=== PATIENT | female | born 1940 | race Caucasian/White ===

== ENCOUNTER 2017-02-01 12:04 | Day surgery (SDC) | payer BC ==
--- NOTE | ~2017-02-01 | EGD ---
EGD REPORT [facility] [address] [address] NAME: TRINIDAD MYERS : [birth year] STATUS : REG [facility] PAT#: [id number] AGE: 76 ADM/REG DATE : 02/01/17 MR#: [id number] REPORT SERV DATE: 02/01/17 DICTATED BY: PEPPER MCALLISTER DATE: 02/01/17 REPORT STATUS : Draft [facility]: [facility] DATE: 02/01/17 [facility] Patient Name: Trinidad Myers Date of : 1940 Attending MD: PEPPER MCALLISTER MD Procedure Date No Time: 02/01/2017 Procedure: Colonoscopy Indications: Chronic diarrhea Referring MD: ASHA MAK Medicines: Monitored Anesthesia Care Complications: No immediate complications. Procedure: Pre-Anesthesia Assessment: - ASA Grade Assessment: III - A patient with severe systemic disease. After I obtained informed consent, the scope was passed under direct vision. Throughout the procedure, the patient's blood pressure, pulse, and oxygen saturations were monitored continuously. The CF [id number] was introduced through the anus and advanced to the terminal ileum, with identification of the appendiceal orifice and IC valve. The colonoscopy was performed without difficulty. The patient tolerated the procedure well. The quality of the bowel preparation was good. Findings: The terminal ileum appeared normal. A sessile polyp was found in the ascending colon. The polyp was 5 mm in size. The polyp was removed with a cold biopsy forceps. Resection and retrieval were complete. The ascending colon appeared normal. Biopsies were taken with a cold forceps for evaluation of microscopic colitis. The sigmoid colon appeared normal. Biopsies were taken with a cold forceps for evaluation of microscopic colitis. Multiple diverticula were found in the sigmoid colon. Hemorrhoids were found during retroflexion and were moderate. Impression: - The examined portion of the ileum was normal. - One 5 mm polyp in the ascending colon. Resected and retrieved. - The ascending colon is normal. Biopsied. - The sigmoid colon is normal. Biopsied. - Diverticulosis in the sigmoid colon. - Hemorrhoids. Recommendation: - Patient has a contact number available for EGD REPORT [address] [address] NAME: TRINIDAD MYERS : [birth year] STATUS : REG [facility] PAT#: [id number] AGE: 76 ADM/REG DATE : 02/01/17 MR#: [id number] REPORT SERV DATE: 02/01/17 DICTATED BY: PEPPER MCALLISTER DATE: 02/01/17 REPORT STATUS : Draft TRANSCRIBED BY: [facility] DATE: 02/01/17 emergencies. The signs and symptoms of potential delayed complications were discussed with the patient. Return to normal activities tomorrow. Written discharge instructions were provided to the patient. - Regular diet. - Continue present medications. - Return to GI clinic in 4 weeks. Procedure Code(s): --- Professional --- 23911, Colonoscopy, flexible, proximal to splenic flexure; with biopsy, single or multiple Diagnosis Code(s): --- Professional --- K64.9, Unspecified hemorrhoids K57.30, Diverticulosis of large intestine without perforation or abscess without bleeding D12.2, Benign neoplasm of ascending colon K52.9, Noninfective gastroenteritis and colitis, unspecified CPT copyright 2013 [employer]. All rights reserved. The codes documented in this report are preliminary and upon entry level finance review may be revised to meet current compliance requirements. PEPPER MCALLISTER MD 02/01/2017 3:18 PM This report has been signed electronically. Number of Addenda: 0 Note Initiated On: 02/01/2017 2:27 PM Scope Withdrawal Time 0 hours 7 minutes 45 seconds [id number] [id number]
--- NOTE | ~2017-02-01 | EGD ---
EGD REPORT [facility] [address] [address] NAME: TRINIDAD MYERS : 36 STATUS : REG [facility] [place] PAT#: [id number] AGE: 76 ADM/REG DATE : 02/01/17 MR#: [id number] REPORT SERV DATE: 02/01/17 DICTATED BY: PEPPER MCALLISTER DATE: 02/01/17 REPORT STATUS : Draft [facility] DATE: 02/01/17 End[facility] Center Patient Name: Trinidad Myers Date of : 1940 Attending MD: PEPPER MCALLISTER MD Procedure Date No Time: 02/01/2017 Procedure: Upper GI endoscopy Indications: Diarrhea Referring MD: Jayna Dumont Medicines: Monitored Anesthesia Care Complications: No immediate complications. Procedure: Pre-Anesthesia Assessment: - ASA Grade Assessment: III - A patient with severe systemic disease. After obtaining informed consent, the endoscope was passed under direct vision. Throughout the procedure, the patient's blood pressure, pulse, and oxygen saturations were monitored continuously. The GIF [id number] was introduced through the mouth, and advanced to the second part of duodenum. The upper GI endoscopy was accomplished without difficulty. The patient tolerated the procedure well. Findings: The examined esophagus was normal. A large hiatus hernia was present. The first part of the duodenum was normal. The 2nd part of the duodenum was normal. Biopsies were taken with a cold forceps for histology. A single medium-sized nodule that is soft was found at 2nd part of the duodenum. Impression: - Normal esophagus. - Hiatus hernia. - Normal first part of the duodenum. - Normal 2nd part of the duodenum. Biopsied. - Nodule found in the duodenum. Recommendation: - Await pathology results. Procedure Code(s): --- Professional --- 56286, Esophagogastroduodenoscopy, flexible, transoral; with biopsy, single or multiple Diagnosis Code(s): --- Professional --- EGD REPORT [place] [address] [address] NAME: TRINIDAD MYERS : [birth year] STATUS : REG [facility] [place] PAT#: [id number] AGE: 76 ADM/REG DATE : 02/01/17 MR#: [id number] REPORT SERV DATE: 02/01/17 DICTATED BY: PEPPER MCALLISTER DATE: 02/01/17 REPORT STATUS : Draft TRANSCRIBED BY: [facility] DATE: 02/01/17 K44.9, Diaphragmatic hernia without obstruction or gangrene K31.9, Disease of stomach and duodenum, unspecified R19.7, Diarrhea, unspecified CPT copyright 2013 [employer]. All rights reserved. The codes documented in this report are preliminary and upon molder wax ball review may be revised to meet current compliance requirements. PEPPER MCALLISTER MD 02/01/2017 2:56 PM This report has been signed electronically. Number of Addenda: 0 Note Initiated On: 02/01/2017 2:33 PM Scope Withdrawal Time 0 hours 0 minutes 0 seconds [facility] [address] [id number]
[~2017-02-01 12:04] MED LIST: CARDIZEM LA180 MG PO; IBU-200200 MG PO; LIPITOR20 PO; PRILO PO; PRIN10 PO; SINGULAIR1 PO; SYN125 PO; ZYRTEC ALLGY10 MG PO
== END 2017-02-01 23:59 | disposition home or self-care (01) ==
LOC: DMU 12:04
PROVIDERS: Internal Medicine Gastroenterology
PROC: 0DB98ZX Excision of Duodenum, Via Natural or Artificial Opening Endoscopic, Diagnostic (ICD-10-PCS; 2017-02-01)
PROC: 0DBK8ZZ Excision of Ascending Colon, Via Natural or Artificial Opening Endoscopic (ICD-10-PCS; principal; 2017-02-01 13:30)
PROC: 0DBN8ZZ Excision of Sigmoid Colon, Via Natural or Artificial Opening Endoscopic (ICD-10-PCS; 2017-02-01 13:30)
DX: D12.2 Benign neoplasm of ascending colon (principal); K63.5 Polyp of colon; K64.9 Unspecified hemorrhoids; K57.30 Diverticulosis of large intestine without perforation or abscess without bleeding; K52.9 Noninfective gastroenteritis and colitis, unspecified; K44.9 Diaphragmatic hernia without obstruction or gangrene; K31.9 Disease of stomach and duodenum, unspecified; R19.7 Diarrhea, unspecified; I10 Essential (primary) hypertension; E78.00 Pure hypercholesterolemia, unspecified; E03.9 Hypothyroidism, unspecified; M19.90 Unspecified osteoarthritis, unspecified site; E66.01 Morbid (severe) obesity due to excess calories; R42 Dizziness and giddiness
CPT/HCPCS: 88305; 88341; 88342